=== PATIENT | female | born 1980 | race Caucasian/White ===

== ENCOUNTER → 2022-12-07 | Outpatient (CLI) | payer MEDICAID, SELFPAY ==
--- NOTE | 2022-12-07 11:55 | RAD_ITS ---
STUDY: X-RAY - ABDOMEN/PELVIS REASON FOR EXAM: Female, 42 years old. KUB- URGE INCONT. TECHNIQUE: Two AP supine views of the abdomen and pelvis. COMPARISON: None. FINDINGS: Normal visualized lung bases. There is a baclofen telephoned overlying the left side of the hip with the lead projected over the right sacrum. Postoperative change right upper quadrant status post cholecystectomy. There is moderate stool within the colon. There is no demonstrated free abdominal air. The visualized liver, spleen are grossly normal in size and morphology. Kidneys are mostly obscured by bowel gas. Normal soft tissue structures. Normal visualized osseous structures. RAD/Abdomen Single View IMPRESSION: Baclofen pump. Status post cholecystectomy Moderate constipation. Electronically Signed: Jaimie Gray MD at 5:27 EDT ,
== END | disposition home or self-care (01) ==
LOC: MTRAD 11:53
PROVIDERS: PCP Family Medicine; Referring Provider Urology; Visit Provider Urology
DX: N39.41 Urge incontinence (principal)
CPT/HCPCS: 74018